=== PATIENT | female | born 1995 | race Caucasian/White ===

== ENCOUNTER 2018-11-21 15:52 | Emergency (ER) | payer OTHER ==
[2018-11-21 16:01] VITALS: TEMP 98.5
[2018-11-21] MEDS ORDERED: Sodium Chloride 0.9% 1,000 ML IV STA (16:10)
--- NOTE | 2018-11-21 16:14 | ED PDOC ---
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 Ate cracker with sesame seeds and developed itching in throat. Denies SOB, rash or itching. Took Benadryl 50 mg after ingestion. Occurred 20 min prior to arrival. Past Medical History Vital Signs: Last Vital Signs Temp 98.5 F 11/21/18 15:58 Pulse 91 H 11/21/18 15:58 Resp 16 11/21/18 15:58 BP 145/91 H 11/21/18 15:58 Pulse Ox 99 11/21/18 15:58 - Medical History PMH: No Chronic Diseases - Family History Family History: States: Unknown Family Hx - Home Medications Home Medications: Ambulatory Orders Medication Instructions Recorded Cetirizine HCl [Zyrtec] 10 mg PO DAILY #10 capsule 11/21/18 Prednisone 50 mg PO DAILY #5 tab 11/21/18 - Allergies Allergies/Adverse Reactions: Allergies Allergy/AdvReac Type Severity Reaction Status Date / Time nut - unspecified Allergy SWELLING Verified 11/21/18 15:57 peanut Allergy SWELLING Verified 11/21/18 15:57 sesame seed Allergy SWELLING Verified 11/21/18 15:57 Review of Systems ENT: Negative for: Nose Congestion, Throat Swelling Respiratory: Negative for: Shortness of Breath Skin: Negative for: Rash Physical Exam - Reviewed Nursing Documentation Reviewed: Yes Vital Signs Reviewed: Yes - Physical Exam Appears: Positive for: Non-toxic, No Acute Distress Head Exam: Positive for: ATRAUMATIC, NORMAL INSPECTION, NORMOCEPHALIC Skin: Positive for: Normal Color, Warm. Negative for: Rash Eye Exam: Positive for: EOMI, Normal appearance, PERRL ENT: Positive for: Normal ENT Inspection. Negative for: Nasal Congestion, Pharyngeal Erythema, Tonsillar Swelling Neck: Positive for: Normal, Painless ROM Cardiovascular/Chest: Positive for: Regular Rate, Rhythm Respiratory: Positive for: Normal Breath Sounds. Negative for: Wheezing, Respiratory Distress Gastrointestinal/Abdominal: Positive for: Normal Exam, Soft Back: Positive for: Normal Inspection Extremity: Positive for: Normal ROM Neurologic/Psych: Positive for: Alert, Oriented - Laboratory Results Result Diagrams: 11/21/18 17:23 11/21/18 17:23 - ECG O2 Sat by Pulse Oximetry: 99 - Progress ED Course And Treament: Responded to IV fluids. Awake alert normotensive. EKG NSR [address] changes, ? early repolarization. Feels better Re-evaluation Time: 16:30 Condition: Re-examined (Called to evaluate pt who became diaphoretic hypotensive and bradycardic after insertion of IV. Pt has previous h/o vasovagal episodes with blood draw.) Disposition - Clinical Impression Clinical Impression: Allergic reaction, Vasovagal episode - Patient ED Disposition Is Patient to be Admitted: No Counseled Patient/Family Regarding: Studies Performed, Diagnosis, Need For Followup, Rx Given - Disposition Referrals: [facility] [Outside] Disposition: Routine/Home Disposition Time: 18:01 Condition: FAIR Prescriptions: Cetirizine HCl [Zyrtec] 10 mg PO DAILY #10 capsule Prednisone 50 mg PO DAILY #5 tab Instructions: Vasovagal Response, Food Allergy Forms: [facility] (Slovenian)
[2018-11-21 17:35] LABS: BASO # 0.1 K/uL (0.0-0.2); BASO % 0.7 % (0.0-2.0); EOS # 0.1 K/uL (0.0-0.7); EOS % 1.1 % (0.0-4.0); HEMOGLOBIN 11.2 g/dL (12.0-16.0); LYMPH # 3.3 K/uL (1.0-4.3); LYMPH % 33.9 % (20.0-40.0); MEAN CORPUSCULAR HEMOGLOBIN 27.2 pg (27.0-31.0); MEAN CORPUSCULAR HGB CONC 32.4 g/dL (33.0-37.0); MEAN PLATELET VOLUME 9.2 fl (7.2-11.7); MONO # 0.5 K/uL (0.0-0.8); MONO % 4.9 % (0.0-10.0); NEUT # 5.8 K/uL (1.8-7.0); NEUT % 59.4 % (50.0-75.0); NRBC % 0.1 % (0.0-0.0); RBC 4.1 Mil/uL (3.80-5.20); RED CELL DISTRIBUTION WIDTH 15.4 % (11.5-14.5); WHITE BLOOD COUNT 9.7 K/uL (4.8-10.8)
[2018-11-21 17:42] LABS: ALB/GLOB RATIO 1.4 (1.0-2.1); ALBUMIN 4.1 g/dL (3.5-5.0); ALT/SGPT 16 U/L (9-52); AST/SGOT 22 U/L (14-36); BLOOD UREA NITROGEN 13 mg/dl (7-17); CALCIUM 9.5 mg/dL (8.4-10.2); GFR NON-AFRICAN AMERICAN > 60
[2018-11-21 18:24] VITALS: BP 120/69; PULSE 70; RESP 18; O2SAT 100
--- NOTE | 2018-11-22 08:02 | CARD ---
APPROVED REPORT Date of service: 11/21/2018 EKG Measurement Heart [id number] <Conclusion> Normal sinus rhythm ST elevation, probably due to early repolarization Borderline ECG
== END 2018-11-21 18:02 | disposition home or self-care (01) ==
LOC: H.ER 15:52
DX: T78.40XA Allergy, unspecified, initial encounter (principal); X58.XXXA Exposure to other specified factors, initial encounter; R55 Syncope and collapse
CPT/HCPCS: 80053; 82948; 85025; 93005; 96374; 96375; 99283; J2930; J7030